=== PATIENT | female | born 1960 ===

== ENCOUNTER 2017-05-28 14:13 | Emergency (ER) | payer BC, MEDICARE ==
[2017-05-28 14:13] VITALS: BMI 31.5
[2017-05-28 14:36] VITALS: RESP 18; TEMP 97.6
--- NOTE | 2017-05-28 14:38 | ED PDOC ---
Arrival/HPI - General Chief Complaint: Back Pain Time Seen by Provider: 05/28/17 14:38 Historian: Patient - History of Present Illness Narrative History of Present Illness (Text): 05/28/17 14:38 This 56-year-old female with a past medical history of fibromyalgia and asthma, presents to the emergency department complaining of right flank pain and urinary symptoms 3-1/2 days. Patient stated she has been taking antibiotic for 2 days without any improvement of her symptoms. Patient developed localized symptoms since yesterday, and today she became nauseous. Patient call her PMD who recommended her to come to the ED to rule out pyelonephritis. Patient denies shortness of breath, chest pain, fever, recent travel, contact, hematuria, vaginal discharge, dizziness, or abnormal gait Time/Duration: Other (See HPI) Context: Home Past Medical History - Provider Review Nursing Documentation Reviewed: Yes - Infectious Disease Hx of Infectious Diseases: None - Cardiac Hx Cardiac Disorders: No Hx Angina: No Hx Cardiac Arrhythmia: No Hx Circulatory Problems: No Hx Congestive Heart Failure: No Hx Heart Murmur: No Hx Heart Transplant: No Hx Hypertension: No Hx Internal Defibrillator: No Hx Mitral Valve Prolapse: No Hx Pacemaker: No Hx Peripheral Edema: No Hx Peripheral Vascular Disease: No - Pulmonary Hx Respiratory Disorders: No Hx Asthma: Yes Hx Bronchitis: No Hx Chronic Obstructive Pulmonary Disease (COPD): No Hx Emphysema: No Hx Pneumonia: No Hx Respiratory Aspiration: No Hx Respiratory Tract Infection: No Hx Sleep Apnea: No Hx Tuberculosis: No - Neurological Hx Neurological Disorder: No Hx Alzheimer's Disease: No HX Cerebrovascular Accident: No Hx Dementia: No Hx Dizziness: No Hx Meningitis: No Hx Migraine: No Hx Parkinson's Disease: No Hx Seizures: No Hx Transient Ischemic Attacks (TIA): No - HEENT Hx HEENT Disorder: No Hx Blind: No Hx Cataracts: No Hx Deafness: No Hx Difficulty Chewing: No Hx Epistaxis: No Hx Glaucoma: No Hx Macular Degeneration: No - Renal Hx Renal Disorder: No Hx Dialysis: No Hx Kidney Stones: No Hx Neurogenic Bladder: No Hx Pyelonephritis: No Hx Renal Cancer: No Hx Renal Failure: No Other/Comment: 2 yrs ago admitted for kidney infection - Endocrine/Metabolic Hx Endocrine Disorders: Yes Hx Adrenal Cancer: No Hx Diabetes Insipidus: No Hx Diabetes Mellitus Type 1: No Hx Diabetes Mellitus Type 2: No Hx Hyperthyroidism: No Hx Hypothyroidism: Yes Hx Systemic Lupus Erythematosus: No - Hematological/Oncological Hx Blood Disorders: No Hx AIDS: No Hx Anemia: No Hx Cancer: No Hx Chemotherapy: No Hx Cirrhosis: No Hx Hemophilia: No Hx Hepatitis A: No Hx Hepatitis B: No Hx Hepatitis C: No Hx Metastasis: No Hx Shingles: No Hx Sickle Cell Disease: No Hx Unexplained Bleeding: No - Integumentary Hx Dermatological Disorder: No Hx Basal Cell Carcinoma: No Hx Eczema: No Hx Melanoma: No Hx Psoriasis: No Hx Squamous Cell Carcinoma: No - Musculoskeletal/Rheumatological Hx Musculoskeletal Disorders: Yes Hx Arthritis: No Hx Back Pain: Yes Hx Degenerative Joint Disease: No Hx Falls: No Hx Fractures: No Hx Gout: No Hx Herniated Disk: No Hx Myasthenia Gravis: No Hx Osteoarthritis: No Hx Osteomyelitis: No Hx Osteoporosis: No Hx Rhabdomyolysis: No Hx Spinal Stenosis: No Hx Unsteady Gait: No Other/Comment: Spinal Stimulator. - Gastrointestinal Hx Gastrointestinal Disorders: No Hx Colostomy: No Hx Crohn's Disease: No Hx Diverticulitis: No Hx Gall Bladder Disease: No Hx Gastroesophageal Reflux: No Hx Ileostomy: No Hx Liver Failure: No Hx Pancreatitis: No HX Swallowing Problems: No - Genitourinary/Gynecological Hx Genitourinary Disorders: No Hx Hematuria: No Hx Incontinence: No Hx Sexually Transmitted Diseases: No Hx Urinary Tract Infection: No - Psychiatric Hx Psychophysiologic Disorder: No Hx Anxiety: No Hx Bipolar Disorder: No Hx Depression: No Hx Emotional Abuse: No Hx Hallucinations: No Hx Panic Disorder: No Hx Post Traumatic Stress Disorder: No Hx Psychosis: No Hx Physical Abuse: No Hx Schizophrenia: No Hx Sexual Abuse: No Hx Substance Use: No - Surgical History Hx Amputation: No Hx Appendectomy: No Hx Cardiac Catheterization: No Hx Section: Yes (x2) Hx Cholecystectomy: No Hx Coronary Stent: No Hx Gastric Bypass Surgery: No Hx Hysterectomy: No Hx Joint Replacement: No Hx Kidney Transplant: No Hx Liver Transplant: No Hx Mastectomy: No Hx Musculoskeletal Surgery: Yes (lumbar laminectomy) Hx Open Heart Surgery: No Hx Orthopedic Surgery: No Hx Splenectomy: No Hx Thyroidectomy: Yes (90% removed) Hx Tubal Ligation: Yes Hx Valve Replacement: No Other/Comment: spinal cord stmulator inplant / removal - Anesthesia Hx Anesthesia: (t) Hx Anesthesia Reactions: No Hx Malignant Hyperthermia: No - Suicidal Assessment Feels Threatened In Home Enviroment: No Family/Social History - Physician Review Nursing Documentation Reviewed: Yes Family/Social History: Other (Noncontributory) Smoking Status: Former Smoker Hx Alcohol Use: No Hx Substance Use: No Hx Substance Use Treatment: No Allergies/Home Meds Allergies/Adverse Reactions: Allergies magnesium Allergy (Verified 05/24/16 10:41) ANAPHYLAXIS Sulfa (Sulfonamide Antibiotics) Allergy (Verified 05/24/16 10:41) RASH Home Medications: Home Meds Medication Instructions Recorded Confirmed Ciprofloxacin [Cipro] 500 mg PO BID 06/18/15 05/28/17 Pregabalin [Lyrica] 75 mg PO DAILY 05/28/17 05/28/17 Review of Systems - Review of Systems Constitutional: Normal. absent: Fatigue, Weight Change, Fevers, Night Sweats Eyes: Normal ENT: Normal Respiratory: Normal. absent: SOB, Cough Cardiovascular: Normal. absent: Chest Pain, Palpitations Gastrointestinal: Nausea, Other (Right flank pain). absent: Constipation, Diarrhea, Vomiting Genitourinary Female: Dysuria, Frequency. absent: Hematuria, Urine Output Changes, Vaginal Bleeding, Vaginal Discharge Musculoskeletal: Back Pain. absent: Neck Pain Skin: Normal. absent: Rash, Pruritis Neurological: Normal. absent: Headache, Dizziness Endocrine: Normal Hemo/Lymphatic: Normal Psychiatric: Normal Physical Exam Vital Signs Temp Pulse Resp BP Pulse Ox 05/28/17 14:26 97.6 F 84 18 159/82 H 95 Temperature: Afebrile Blood Pressure: Normal Pulse: Regular Respiratory Rate: Normal Appearance: Positive for: Well-Appearing, Non-Toxic, Comfortable Pain Distress: None Mental Status: Positive for: Alert and Oriented X 3 - Systems Exam Head: Present: Atraumatic, Normocephalic Pupils: Present: PERRL Extroacular Muscles: Present: EOMI Conjunctiva: Present: Normal Mouth: Present: Moist Mucous Membranes Neck: Present: Normal Range of Motion Respiratory/Chest: Present: Clear to Auscultation, Good Air Exchange. No: Respiratory Distress, Accessory Muscle Use Cardiovascular: Present: Regular Rate and Rhythm, Normal S1, S2. No: Murmurs Abdomen: Present: Normal Bowel Sounds. No: Tenderness, Distention, Peritoneal Signs Back: Present: Normal Inspection. No: CVA Tenderness Upper Extremity: Present: Normal Inspection, Normal ROM, NORMAL PULSES, Neurovascularly Intact, Capillary Refill < 2s. No: Cyanosis, Edema Lower Extremity: Present: Normal Inspection, NORMAL PULSES, Normal ROM, Neurovascularly Intact, Capillary Refill < 2 s. No: Edema, CALF TENDERNESS Neurological: Present: GCS=15, CN II-XII Intact, Speech Normal, Motor Func Grossly Intact, Normal Sensory Function, Normal Cerebellar Funct, Gait Normal, Memory Normal Skin: Present: Warm, Dry, Normal Color. No: Rashes Psychiatric: Present: Alert, Oriented x 3, Normal Insight, Normal Concentration Medical Decision Making ED Course and Treatment: 05/28/17 17:43 I spoke with patient regarding the possibility of right buttock abscess. Patient disagree with this finding. She sated she had an implanted battery for pain control on her right buttock, removed in November 2016. I examined this area. No erythema, or abscess visualized. Scar was seen. No cellulitis. 05/28/17 18:27 Patient came complaining of right flank pain. Physical exam was unremarkable. Patient noted that his symptoms. CT of the abdomen was negative for an acute abdomen. Urinalysis suggests acute cystitis. The rest of Labs were unremarkable. Patient was Recommended to see her doctor in 1-2 days. To return to the ED if symptoms worsen. Re-evaluation Time: 18:29 Reassessment Condition: Re-examined, Improved - Lab Interpretations Lab Results: 05/28/17 15:47 05/28/17 15:47 Lab Results 05/28/17 15:47: Sodium 139, Potassium 3.9, Chloride 103, Carbon Dioxide 26, Anion Gap 14, BUN 18, Creatinine 0.8, Est GFR ( Amer) > 60, Est GFR (Non- Af Amer) > 60, Random Glucose 88, Calcium 9.1, Total Bilirubin 0.5, AST 22, ALT 30, Alkaline Phosphatase 71, Total Protein 7.4, Albumin 4.3, Globulin 3.1, Albumin/Globulin Ratio 1.4 05/28/17 15:47: WBC 9.5, RBC 5.25, Hgb 15.1, Hct 44.6, MCV 85.0, MCH 28.8, MCHC 33.9, RDW 14.1, Plt Count 247, MPV 11.1 H, Gran % 64.5, Lymph % (Auto) 25.1, [place] % (Auto) 8.6 H, Eos % (Auto) 1.5, Baso % (Auto) 0.3, Gran # 6.11, Lymph # 2.4, [place] # 0.8 H, Eos # 0.1, Baso # 0.03 05/28/17 15:30: Urine Color Yellow, Urine Appearance Clear, Urine pH 5.5, Ur Specific [place] >= 1.030, Urine Protein Negative, Urine Glucose (UA) Negative, Urine Ketones Trace H, Urine Blood Trace-intact H, Urine Nitrate Negative, Urine Bilirubin Negative, Urine Urobilinogen 0.2, Ur Leukocyte Esterase Negative , Urine RBC 1 - 3, Urine WBC 1 - 3, Ur Epithelial Cells 3 - 4, Urine Bacteria Few I have reviewed the lab results: Yes Interpretation: Abnormal lab values - RAD Interpretation Narrative RAD Interpretations (Text): 05/28/17 17:43 Accession No. : [id number] Patient Name / ID : PHI VALLEJO / [id number] Exam Date : 05/28/2017 16:39:40 ( Approved ) Study Comment : Sex / Age : F / 56Y Creator : Melinda Dickinson MD Dictator : Melinda Dickinson MD Case Management Rn : Gastroenterology Physician : Melinda Dickinson MD Approver2 : Report Date : 05/28/2017 17:27:58 My Comment : PROCEDURE: CT Abdomen and Pelvis with contrast HISTORY: right flank pain . Hx. cystitis COMPARISON: Abdominal ultrasound performed 05/26/17 TECHNIQUE: Contrast dose: 100 mL Omnipaque 350 Radiation dose: Total exam DLP = 668.93 mGy-cm. This CT exam was performed using one or more of the following dose reduction techniques: Automated exposure control, adjustment of the mA and/or kV according to patient size, and/or use of iterative reconstruction technique. FINDINGS: LOWER THORAX: No visible consolidation, pleural effusion, or pneumothorax. LIVER: 5 mm hypodensity within the right hepatic lobe, too small to characterize ; statistically likely cyst or hemangioma. Hypodense region adjacent to the falciform ligament suspected to reflect focal fatty infiltration. GALLBLADDER AND BILE DUCTS: Unremarkable. PANCREAS: Unremarkable. SPLEEN: Unremarkable. ADRENALS: Unremarkable. KIDNEYS AND URETERS: The kidneys enhance symmetrically. No hydronephrosis or obstructing calculus identified. VASCULATURE: No aortic aneurysm. BOWEL: Stomach is nondistended. Lack of oral contrast limits evaluation for bowel pathology. Bowel loops appear within normal limits of caliber without evidence of obstruction. APPENDIX: The appendix appears within normal limits of caliber. No secondary signs of acute appendicitis. PERITONEUM: No significant free fluid. No definite free air. LYMPH NODES: No bulky adenopathy identified. BLADDER: Unremarkable. REPRODUCTIVE: The uterus is present. BONES: No acute osseous abnormality is detected. . OTHER FINDINGS: 1.2 x 2.7 cm posterior right buttock fluid collection/abscess. Tiny fat containing umbilical hernia. IMPRESSION: Too small to characterize 5 mm right hepatic lobe hypodensity; statistically likely cyst or hemangioma. Hypodensity adjacent to the falciform ligament, likely focal fatty infiltration. 1.2 x 2.7 cm posterior right buttock fluid collection/abscess. Radiology Orders: 05/28/17 14:53 ABD & PELVIS IV CONTRAST ONLY [CT] Stat - Medication Orders Current Medication Orders: Nitrofurantoin Macrocrystals (Macrobid) 100 mg PO STAT STA Stop: 05/28/17 18:27 Ondansetron HCl (Zofran Inj) 4 mg IVP STAT STA Stop: 05/28/17 18:27 Oxycodone/Acetaminophen (Percocet 5/325 Mg Tab) 1 tab PO STAT STA Stop: 05/28/17 18:27 Discontinued Medications Sodium Chloride (Sodium Chloride 0.9%) 1,000 mls @ 999 mls/hr IV .Q1H1M STA Stop: 05/28/17 15:53 Last Admin: 05/28/17 15:44 Dose: 999 mls/hr eMAR Start Stop Document 05/28/17 15:44 EQ (Rec: 05/28/17 15:44 EQ [id number]) Intravenous Solution Start Date 05/28/17 Start Time 15:44 Ketorolac Tromethamine (Toradol) 15 mg IVP STAT STA Stop: 05/28/17 14:55 Last Admin: 05/28/17 15:44 Dose: 15 mg MAR Pain Assessment Document 05/28/17 15:44 EQ (Rec: 05/28/17 15:45 EQ [id number]) Pain Reassessment Is this a pain reassessment? Yes IVP Administration Document 05/28/17 15:44 EQ (Rec: 05/28/17 15:45 EQ [id number]) Charges for Administration # of IVP Administrations 1 Ondansetron HCl (Zofran Inj) 4 mg IVP STAT STA Stop: 05/28/17 14:54 Last Admin: 05/28/17 15:44 Dose: 4 mg IVP Administration Document 05/28/17 15:44 EQ (Rec: 05/28/17 15:44 EQ [id number]) Charges for Administration # of IVP Administrations 1 Disposition/Present on Arrival - Present on Arrival Any Indicators Present on Arrival: No History of DVT/PE: No History of Uncontrolled Diabetes: No Urinary Catheter: No History of Decub. Ulcer: No History Surgical Site Infection Following: None - Disposition Have Diagnosis and Disposition been Completed?: Yes Diagnosis: Acute cystitis Disposition: HOME/ ROUTINE Disposition Time: 18:30 Patient Plan: Discharge Patient Problems: Current Active Problems Problem Status Onset Acute cystitis Acute Condition: GOOD Discharge Instructions (ExitCare): Urinary Tract Infection in Women (ED) Additional Instructions: Call private doctor for follow-up visit in 1-2 days. Take medication as instructed with food. Review of urine culture with your doctor in 3-5 days. Return to the emergency if symptoms worsen Prescriptions: Naproxen 500 mg PO BID PRN #10 tab PRN Reason: Pain, Severe (8-10) Nitrofurantoin Macrocrystals [Macrobid] 100 mg PO BID #14 cap Phenazopyridine HCl [Pyridium] 200 mg PO TID #6 tablet Referrals: Sarah Enriquez MD [Primary Care Provider] - Follow up with primary Forms: [facility] (Georgian), WORK NOTE
[2017-05-28] MEDS ORDERED: Sodium Chloride 0.9% 1,000 ML IV STA (14:53)
[2017-05-28 16:03] LABS: ALB/GLOB RATIO 1.4 (1.1-1.8); ALKALINE PHOSPHATASE 71 U/L (38-126); ALT/SGPT 30 U/L (7-56); AST/SGOT 22 U/L (14-36); BILIRUBIN,TOTAL 0.5 mg/dL (0.2-1.3); BLOOD UREA NITROGEN 18 mg/dL (7-21); CALCIUM 9.1 mg/dL (8.4-10.5); CARBON DIOXIDE 26 mmol/L (21-33); CHLORIDE 103 mmol/L (98-107); GFR AFRICAN-AMERICAN > 60; GLUCOSE,RANDOM 88 mg/dL (70-110); POTASSIUM 3.9 mmol/L (3.6-5.0); SODIUM 139 mmol/L (132-148); TOTAL PROTEIN 7.4 g/dL (5.8-8.3)
[2017-05-28 16:07] LABS: BASO # 0.03 K/mm3 (0.0-2.0); BASO % 0.3 % (0.0-3.0); EOS # 0.1 (0.0-0.7); EOS % 1.5 % (1.5-5.0); GRAN # 6.11 (1.4-6.5); GRAN % 64.5 % (50.0-68.0); HEMATOCRIT 44.6 % (36.0-48.0); LYMPH # 2.4 (1.2-3.4); LYMPH % 25.1 % (22.0-35.0); MEAN CORPUSCULAR HEMOGLOBIN 28.8 pg (25.0-35.0); MEAN CORPUSCULAR HGB CONC 33.9 g/dl (31.0-37.0); MEAN PLATELET VOLUME 11.1 fl (7.0-11.0); MONO # 0.8 (0.1-0.6); MONO % 8.6 % (1.0-6.0); RED CELL DISTRIBUTION WIDTH 14.1 % (11.5-14.5); WHITE BLOOD COUNT 9.5 10^3/ul (4.5-11.0)
[2017-05-28] MEDS ORDERED: Iohexol 350 MG/100 ML VIAL ONE (16:28)
--- NOTE | 2017-05-28 17:29 | CT ---
PROCEDURE: CT Abdomen and Pelvis with contrast HISTORY: right flank pain . Hx. cystitis COMPARISON: Abdominal ultrasound performed 05/26/17 TECHNIQUE: Contrast dose: 100 mL Omnipaque 350 Radiation dose: Total exam DLP = 668.93 mGy-cm. This CT exam was performed using one or more of the following dose reduction techniques: Automated exposure control, adjustment of the mA and/or kV according to patient size, and/or use of iterative reconstruction technique. FINDINGS: LOWER THORAX: No visible consolidation, pleural effusion, or pneumothorax. LIVER: 5 mm hypodensity within the right hepatic lobe, too small to characterize ; statistically likely cyst or hemangioma. Hypodense region adjacent to the falciform ligament suspected to reflect focal fatty infiltration. GALLBLADDER AND BILE DUCTS: Unremarkable. PANCREAS: Unremarkable. SPLEEN: Unremarkable. ADRENALS: Unremarkable. KIDNEYS AND URETERS: The kidneys enhance symmetrically. No hydronephrosis or obstructing calculus identified. VASCULATURE: No aortic aneurysm. BOWEL: Stomach is nondistended. Lack of oral contrast limits evaluation for bowel pathology. Bowel loops appear within normal limits of caliber without evidence of obstruction. APPENDIX: The appendix appears within normal limits of caliber. No secondary signs of acute appendicitis. PERITONEUM: No significant free fluid. No definite free air. LYMPH NODES: No bulky adenopathy identified. BLADDER: Unremarkable. REPRODUCTIVE: The uterus is present. BONES: No acute osseous abnormality is detected. . OTHER FINDINGS: 1.2 x 2.7 cm posterior right buttock fluid collection/abscess. Tiny fat containing umbilical hernia. IMPRESSION: Too small to characterize 5 mm right hepatic lobe hypodensity; statistically likely cyst or hemangioma. Hypodensity adjacent to the falciform ligament, likely focal fatty infiltration. 1.2 x 2.7 cm posterior right buttock fluid collection/abscess.
[2017-05-28 17:54] LABS: PH,URINE 5.5 (4.7-8.0); URINE APPEARANCE CLEAR (CLEAR); URINE BILIRUBIN NEGATIVE (NEGATIVE); URINE BLOOD TRACE-INTACT (NEGATIVE); URINE COLOR YELLOW (YELLOW); URINE GLUCOSE (UA) NEGATIVE (NEGATIVE); URINE KETONE TRACE mg/dL (NEGATIVE); URINE LEUKOCYTE ESTERASE NEGATIVE Leu/uL (NEGATIVE); URINE PROTEIN NEGATIVE mg/dL (<30 mg/dL); URINE UROBILINOGEN 0.2 E.U./dL (<1 E.U./dL)
[2017-05-28 18:03] LABS: URINE BACTERIA FEW (NEG)
[2017-05-28] MEDS ORDERED: Oxycodone/Acetaminophen 5/325 mg Tab PO STA (18:26)
[2017-05-28 19:39] VITALS: BP 132/76; PULSE 81; O2SAT 99
== END 2017-05-28 19:37 | disposition home or self-care (01) ==
LOC: ED 14:13
DX: N30.00 Acute cystitis without hematuria (principal); M79.7 Fibromyalgia
CPT/HCPCS: 74177; 80053; 81001; 85025; 87086; 96374; 96375; 96376; 99282; J1885; J2405; J7040; Q9967

== ENCOUNTER 2018-07-19 06:22 | Day surgery (SDC) | payer BC, MEDICARE ==
[2018-07-09 11:28] VITALS: BMI 32.2
--- NOTE | 2018-07-16 21:42 | HP ---
DATE OF EXAM: REASON FOR ADMISSION: Left heart cath, possible angioplasty and chest pain. BRIEF CLINICAL HISTORY: This is a 57-year-old female with past medical history significant for COPD, chest pain, palpitation and dyspnea on exertion. Underwent stress test, the patient felt chest pain during stress test, though nuclear scan was negative, but the patient was seen by Dr. Hoyos and thought to be angina, so, the patient is scheduled for elective cardiac cath, possible angioplasty and thought to be a false-negative stress test. PAST MEDICAL HISTORY: Significant for asthma and arthritis. SOCIAL HISTORY: Denies smoking. Denies any history of alcohol abuse. CURRENT MEDICATIONS: The patient is taking meloxicam 7.5 mg daily, Ventolin inhaler one puff twice a day, Lyrica 75 mg daily, Singulair 10 mg daily, Breo Ellipta inhaler one puff daily, and aspirin 81 mg daily. Recent cardiac workup as follows: The patient had a stress test dated 06/23/2018 that showed normal myocardial perfusion study, ejection fraction 85%. The patient had echocardiography done also on 06/23/2018 that showed normal chamber size, ejection fraction of 55%, trace mitral regurgitation and trace tricuspid regurgitation. No pericardial effusion, ejection fraction 55%, dated 06/23/2018. ALLERGIES: ALLERGIC TO MAGNESIUM AND ALLERGIC TO SULFA DRUG. REVIEW OF SYSTEMS: As per HPI. PHYSICAL EXAMINATION: As follows: VITAL SIGNS: Height of the patient 5 feet, weight of the patient 165 pounds, body mass index 32.2 kg/m2.. Temperature afebrile, heart rate 60, blood pressure 140/80. HEENT: PERRLA. Extraocular muscles intact. NECK: Supple. No carotid bruit or thyromegaly. CHEST: Clear to auscultation. HEART: S1 and S2 regular. ABDOMEN: Soft. EXTREMITIES: Clubbing and cyanosis negative. LABORATORY DATA: Blood workup pending. IMPRESSION: A 57-year-old female with past medical history significant for mild obesity, borderline hypertension and chronic obstructive pulmonary disease, came in with dyspnea on exertion. The patient walks half a block and then complains of chest pain. The patient underwent a stress test that was thought to be false negative by Dr. Hoyos. The patient is referred for cardiac catheterization. Further recommendations depend upon catheterization finding. We will get the blood workup and blood workup is within normal limits. We will load with aspirin and Plavix. Risks, benefits, and alternatives were explained to the patient. The patient agreed to proceed for cardiac catheterization. Further recommendations depend upon after the cardiac catheterization and we will follow with you. Thank you Dr. Enriquez/Dr. Hoyos for providing us the opportunity in taking care of the patient, Ewelina Bergman. Jessee Guzman MD
[2018-07-19 07:00] VITALS: RESP 18
[2018-07-19 07:05] LABS: BASO # 0.03 K/mm3 (0.0-2.0); BASO % 0.3 % (0.0-3.0); EOS # 0.1 (0.0-0.7); EOS % 1.3 % (1.5-5.0); GRAN # 6.94 (1.4-6.5); GRAN % 70.1 % (50.0-68.0); HEMOGLOBIN 15.6 g/dL (12.0-16.0); LYMPH # 2.1 (1.2-3.4); LYMPH % 21.4 % (22.0-35.0); MEAN CELL VOLUME 86.2 fl (80.0-105.0); MEAN CORPUSCULAR HEMOGLOBIN 28.6 pg (25.0-35.0); MEAN CORPUSCULAR HGB CONC 33.2 g/dl (31.0-37.0); MEAN PLATELET VOLUME 10.2 fl (7.0-11.0); MONO # 0.7 (0.1-0.6); MONO % 6.9 % (1.0-6.0); RBC 5.45 10^6/uL (3.5-6.1); RED CELL DISTRIBUTION WIDTH 14.2 % (11.5-14.5); WHITE BLOOD COUNT 9.9 10^3/uL (4.5-11.0)
[2018-07-19 07:08] LABS: BLOOD UREA NITROGEN 22 mg/dL (7-21); CALCIUM 9.3 mg/dL (8.4-10.5); GFR NON-AFRICAN AMERICAN > 60; HDL CHOLESTEROL 54 mg/dL (29-60)
[2018-07-19 07:13] LABS: INR 1.04; PARTIAL THROMBOPLASTIN TIME 30.1 Seconds (25.1-36.5)
[2018-07-19 07:19] LABS: LDL CHOLESTEROL 176 mg/dL (0-129)
[2018-07-19] MEDS ORDERED: Verapamil 2 ML ONE (09:00)
[2018-07-19] MEDS ORDERED: Iohexol 350mgl/ml 50 ML ONE (09:01)
[2018-07-19] MEDS ORDERED: Nitroglycerin 50mg in D5W 50 MG/250 ML BOTTLE IV ONE (09:01)
[2018-07-19] MEDS ORDERED: Phenylephrine 10 mg/ml Inj ONE (09:01)
[2018-07-19] MEDS ORDERED: Lidocaine 2% Inj (20ml) ONE (09:08)
[2018-07-19] MEDS ORDERED: Midazolam 2 MG/2 ML VIAL ONE (09:26)
[2018-07-19] MEDS ORDERED: Bacitracin 500 Units/gm Oint Foilpak UD TOP ONE (10:01)
[2018-07-19] MEDS ORDERED: Sodium Chloride 0.9% 1,000 ML IV SCH (10:15)
[2018-07-19 10:19] VITALS: TEMP 97.9
--- NOTE | 2018-07-19 12:00 | CPOSTOP ---
DATE: 07/19/2018 DICTATING PHYSICIAN: Jessee Guzman MD MEDICAL RECEPTION SPECIALIST: RANJITH Bob. TYPE OF ANESTHESIA: Moderate conscious sedation. TOTAL DOSE: 2 mg of Versed and 100 of fentanyl given periodically. Started 1 mg of Versed and 50 of fentanyl. PRE-PROCEDURE DIAGNOSIS: Unstable angina, chest pain, abnormal stress test. PROCEDURE PERFORMED: Left heart catheterization. FINDINGS: Essentially normal major epicardial coronaries, diagonal 1 and OM 1 has moderate disease with 55% stenosis. FINAL DIAGNOSIS: Small vessel disease. POST PROCEDURE CONDITION: The patient's condition is stable. VASCULAR ACCESS SITE: Left radial. CLOSURE DEVICE: TR band. TOTAL RADIATION DOSE: 3303.77 mGy. FLUORO TIME: 1.6 minute. Jessee Guzman MD
[2018-07-19] MEDS ORDERED: Bacitracin 500 Units/gm Oint Foilpak UD ONE (12:36)
[2018-07-19 12:57] VITALS: BP 97/57; PULSE 62; O2SAT 96
--- NOTE | 2018-07-19 14:33 | CARD ---
APPROVED REPORT Date of service: 07/19/2018 EKG Measurement Heart [id number] <Conclusion> Age and gender specific ECG analysis Normal sinus rhythm RBBB Left axis deviation Abnormal ECG
--- NOTE | 2018-07-19 15:31 | CARD ---
APPROVED REPORT Date of service: 07/19/2018 Procedure(s) performed: Left Heart Catheterization HISTORY The patient is a 57 year-old female with a history of : chronic lung disease, tobacco history() : The patient is a former smoker . INDICATION The indication(s) include : positive stress test. CASE TECHNIQUE The patient was brought electively to the Cardiac Catheterization Laboratory in a fasting state and was prepped and draped in a sterile manner. The left wrist was infiltrated with 2% Lidocaine subcutaneous anesthesia. A 6 Fr Glidesheath (Radial Sheath Only) sheath was inserted into the left radial artery without difficulty. Coronary angiography was performed using coronary diagnostic catheters. The left coronary system was accessed and visualized with a Diagnostic ,5 Fr JL 4 catheter. The right coronary system was accessed and visualized with a Diagnostic ,5 Fr JR 3.5 catheter. The left ventricle was accessed and visualized with a 5 Fr Pigtail 145 (Angled) catheter. Left ventricular/Aortic Valve gradient assessed on pullback. Left ventriculogram was performed in [place] projection. Closure device was deployed with a Fr TR Band (Regular) without any complications. The patient tolerated the procedure well and there were no complications associated with the procedure. Vessel Analysis The patient's coronary anatomy is left dominant. The left main coronary artery is a medium size vessel with intimal irregularities. The left main trifurcates to the left anterior descending, circumflex, and ramus. The left anterior descending artery is a medium size vessel with diffuse calcification noted throughout this vessel and without significant stenosis. There is a 30% stenosis in the mid segment. The first diagonal branch is a medium size vessel with diffuse calcification noted throughout this vessel and without significant stenosis. The circumflex artery is a large size vessel with intimal irregularities and without significant stenosis. The first obtuse marginal branch is a large size vessel without significant stenosis. The second obtuse marginal branch is a small size vessel without significant stenosis. The third obtuse marginal branch is a medium size vessel with diffuse calcification noted throughout this vessel and without significant stenosis. There is a 55% stenosis in the ostial segment. The left posterior descending artery is a medium size vessel with intimal irregularities and without significant stenosis. The right coronary artery is a small size vessel with diffuse calcification noted throughout this vessel and without significant stenosis. Left Ventricle The left ventricle is normal in size with normal contractility. There was no cardiomyopathy. The left ventricular ejection fraction is estimated to be 65%. The left ventricular end diastolic pressure is 12-14 mmHg. There was no gradient across the aortic valve upon pullback. Conclusion Non Obstructive CAD Preserved LV FX,EF-65%, EDP-12-14 Major epicardial Coronaries are normal But OM3 has Ostial 55% stenosis. Recommendations Aggressive Medical TherapyCardiac Risk Reduction Program CC; Drs. Enriquez/ Soha
== END 2018-07-19 13:30 | disposition home or self-care (01) ==
LOC: CATH 06:22
PROVIDERS: ATTEND Internal Medicine Cardiovascular Disease
DX: I25.110 Atherosclerotic heart disease of native coronary artery with unstable angina pectoris (principal); R94.39 Abnormal result of other cardiovascular function study; I45.10 Unspecified right bundle-branch block; I73.9 Peripheral vascular disease, unspecified; Z87.891 Personal history of nicotine dependence
CPT/HCPCS: 36415; 80048; 80061; 85025; 85610; 85730; 86850; 86900; 93005; 93458; 99152; C1769; C1887; J1644 ×2; J2250; J3010; J7030; J7040; Q9967

== ENCOUNTER 2018-08-21 09:50 | Outpatient (CLI) | payer BC, MEDICARE | END 2018-08-21 09:51 | disposition home or self-care (01) | LOC: RAD 09:50 ==